=== PATIENT | male | born 1960 | race Caucasian/White ===

== ENCOUNTER → 2017-11-15 | Outpatient (CLI) | payer OTHER ==
[~2017-11-15] MED LIST: ALBU90OI; ALBU90OI6 INH; AMOCLA875 PO; Ativan1 MG PO; BUME2 PO; CARV6.25 PO; CEPH500 PO; CLIN300 PO; DIGO.25; DOXY100 PO; FERR325; FLUSAL5005; FURO20 PO; FURO40; GLYB2.5; GLYB5; HUMULIN R; HYDACE5 PO; HYDGUAL120 PO; HYDR1TAB94 PO; INSULANI; INSULIN 70/30 SC; KLOR; LISI20; METF500; MULVITA; MUPI2TC TOP; NIAC500; Norco 5-325 Ta1 EACH PO; OXYACE5T PO; OXYM.05NI; POTA10T PO; PRAV20 PO; PROCODE120 PO; Percocet 5-3251 EACH PO; RXHYDGUAS PO; SIMV20; SIMV40 PO; SPIR25; SULTRIDS PO; TRAZ100 PO; VERA180ER; VERA180ERB; WARF5
[2017-11-15 14:49] LABS: BASOPHILS ABSOLUTE AUTO 0.07 K/mm3 (0.00-0.23); BASOPHILS PERCENT AUTO 1 % (0-2); EOSINOPHILS ABSOLUTE AUTO 0.16 K/mm3 (0.00-0.68); EOSINOPHILS PERCENT AUTO 2 % (0-6); Hematocrit 38.4 % (37.0-53.0); Hemoglobin 12.9 g/dL (13.5-17.5); IMMATURE GRAN ABSOLUTE AUTO 0.07 K/mm3 (0.00-0.10); IMMATURE GRAN PERCENT AUTO 1 % (0-1); LYMPHOCYTES ABSOLUTE AUTO 1.61 K/mm3 (0.84-5.20); LYMPHOCYTES PERCENT AUTO 18 % (21-46); MONOCYTES ABSOLUTE AUTO 1.04 K/mm3 (0.16-1.47); MONOCYTES PERCENT AUTO 11 % (4-13); Mean Corpuscular HGB 30.1 pg (26.0-34.0); Mean Corpuscular HGB Conc 33.6 g/dL (31.5-36.5); Mean Corpuscular Volume 90 fL (80-100); Mean Platelet Volume 10.8 fL (9.1-12.4); NEUTROPHILS ABSOLUTE AUTO 6.22 K/mm3 (1.96-9.15); NEUTROPHILS PERCENT AUTO 68 % (41-73); Platelet Count 161 K/mm3 (150-400); RDW Coefficient Variation 13.9 % (11.7-14.2); RDW Standard Deviation 45.5 fL (35.1-46.3); Red Blood Cell Count 4.28 M/mm3 (4.30-5.90); White Blood Cell Count 9.17 K/mm3 (4.00-11.30)
[2017-11-15 15:02] LABS: Anion Gap 9 mmol/L (6-16); Blood Urea Nitrogen 26 mg/dL (8-24); Bun/Creatinine Ratio 27.4 (12.0-20.0); CO2, Blood 32 mmol/L (21-32); Calcium, Blood 9.2 mg/dL (8.5-10.1); Chloride, Blood 102 mmol/L (98-108); Creatinine, Blood 0.95 mg/dL (0.60-1.20); Glomerular Filtration Rate >60 (60-); Glucose, Blood 140 mg/dL (70-99); Potassium, Blood 4.1 mmol/L (3.5-5.5); Sodium, Blood 143 mmol/L (136-145)
[2017-11-15 15:06] LABS: Troponin I <0.017 ng/mL (0.000-0.040)
== END | disposition home or self-care (01) ==
LOC: LAB EV 14:43
PROVIDERS: Family Medicine
DX: R06.02 Shortness of breath (principal)
CPT/HCPCS: 80048; 83880; 84484; 85025

== ENCOUNTER → 2017-11-21 | Outpatient (CLI) | payer OTHER | END | disposition home or self-care (01) | LOC: OLS 13:58 | DX: R05 Cough (principal) | CPT/HCPCS: 87070; 87205 ==

== ENCOUNTER 2018-03-02 13:32 | Emergency (ER) | payer OTHER ==
[~2018-03-02] VITALS: Ht 188 cm; Wt 128.8 kg
== END 2018-03-02 16:00 | disposition left against medical advice (07) ==
LOC: ER 13:32
DX: Z53.21 Procedure and treatment not carried out due to patient leaving prior to being seen by health care provider (principal)
CPT/HCPCS: 36415; 84484; 93005; 93010; 99283

== ENCOUNTER → 2018-03-02 | Outpatient (CLI) | payer OTHER ==
[2018-03-02 12:11] LABS: BASOPHILS ABSOLUTE AUTO 0.03 K/mm3 (0.00-0.23); BASOPHILS PERCENT AUTO 0 % (0-2); EOSINOPHILS ABSOLUTE AUTO 0.09 K/mm3 (0.00-0.68); EOSINOPHILS PERCENT AUTO 1 % (0-6); Hematocrit 42.8 % (37.0-53.0); Hemoglobin 14.1 g/dL (13.5-17.5); IMMATURE GRAN ABSOLUTE AUTO 0.04 K/mm3 (0.00-0.10); IMMATURE GRAN PERCENT AUTO 0 % (0-1); LYMPHOCYTES ABSOLUTE AUTO 1.32 K/mm3 (0.84-5.20); LYMPHOCYTES PERCENT AUTO 14 % (21-46); MONOCYTES ABSOLUTE AUTO 1.22 K/mm3 (0.16-1.47); MONOCYTES PERCENT AUTO 13 % (4-13); Mean Corpuscular HGB Conc 32.9 g/dL (31.5-36.5); Mean Corpuscular Volume 88 fL (80-100); Mean Platelet Volume 10.9 fL (9.1-12.4); NEUTROPHILS ABSOLUTE AUTO 6.57 K/mm3 (1.96-9.15); NEUTROPHILS PERCENT AUTO 71 % (41-73); Platelet Count 179 K/mm3 (150-400); RDW Coefficient Variation 14.1 % (11.7-14.2); RDW Standard Deviation 45.1 fL (35.1-46.3); Red Blood Cell Count 4.87 M/mm3 (4.30-5.90); White Blood Cell Count 9.27 K/mm3 (4.00-11.30)
[2018-03-02 12:22] LABS: Anion Gap 9 mmol/L (6-16); Blood Urea Nitrogen 21 mg/dL (8-24); Bun/Creatinine Ratio 23.1 (12.0-20.0); CO2, Blood 31 mmol/L (21-32); Calcium, Blood 8.8 mg/dL (8.5-10.1); Chloride, Blood 98 mmol/L (98-108); Creatinine, Blood 0.91 mg/dL (0.60-1.20); Glomerular Filtration Rate >60 (60-); Glucose, Blood 125 mg/dL (70-99); Potassium, Blood 3.8 mmol/L (3.5-5.5); Sodium, Blood 138 mmol/L (136-145); Troponin I 0.022 ng/mL (0.000-0.040)
== END | disposition home or self-care (01) ==
LOC: LAB SHORT 12:03 → LAB EV 12:03
PROVIDERS: Physician Assistant Surgical
DX: R04.2 Hemoptysis (principal)
CPT/HCPCS: 80048; 83880; 84484; 85025; 85379

== ENCOUNTER → 2018-10-29 | Outpatient (CLI) | payer OTHER | LOC: LAB 11:00 → LAB SHORT 11:00 | DX: L02.229 Furuncle of trunk, unspecified (principal) | CPT/HCPCS: 87070; 87205 ==

== ENCOUNTER → 2018-12-25 | Outpatient (CLI) | payer OTHER | LOC: LAB SHORT 16:08 → LAB 16:08 | DX: L02.92 Furuncle, unspecified (principal) | CPT/HCPCS: 88302; 88311 ==

== ENCOUNTER → 2019-05-15 | Outpatient (CLI) | payer OTHER ==
[~2019-05-15] MED LIST changes: +ALBU3IS INH; +BUME1 PO; +CALCITRATE200 MG; +Carvedilol12.5 MG PO; +DOCU100 PO; +ENTRESTO 49 MG1 EACH PO; +FLUT1DIS5 INH; +Fruity C250 MG PO; +Glucophage1000 MG PO; +Humalog100 UNIT/1 SC; +INSULANPEN SC; +K-Dur20 MEQ PO; +LIRA0.6P SC; +MAGOXI400 PO; +MELATONIN5 M1 PO; +Multivitamin1 EAC1 PO; +Pravachol20 MG PO; +Promethazine12.5 M1 PO; +VOLTAREN100 GM TOP; +WARF7.5 PO
== END ==
LOC: LAB 17:44 → LAB SHORT 17:44
DX: L08.9 Local infection of the skin and subcutaneous tissue, unspecified (principal); D48.5 Neoplasm of uncertain behavior of skin
CPT/HCPCS: 87070; 87186; 87205

== ENCOUNTER 2019-07-10 00:20 | Day surgery (SDC) | payer OTHER | END 2019-07-10 22:37 | disposition home or self-care (01) | LOC: WOUND 00:20 | DX: T81.31XA Disruption of external operation (surgical) wound, not elsewhere classified, initial encounter (principal) | CPT/HCPCS: G0463 ==

== ENCOUNTER 2019-07-19 12:26 | Day surgery (SDC) | payer OTHER | END 2019-07-19 22:36 | disposition home or self-care (01) | LOC: WOUND 12:26 | DX: T81.89XA Other complications of procedures, not elsewhere classified, initial encounter (principal); S31.109A Unspecified open wound of abdominal wall, unspecified quadrant without penetration into peritoneal cavity, initial encounter; E11.9 Type 2 diabetes mellitus without complications; I10 Essential (primary) hypertension; E66.01 Morbid (severe) obesity due to excess calories; Z68.33 Body mass index [BMI] 33.0-33.9, adult | CPT/HCPCS: G0463 ==

== ENCOUNTER → 2019-07-20 | Outpatient (CLI) | payer OTHER | END | disposition home or self-care (01) | LOC: LAB SHORT 14:14 → LAB 14:14 | DX: T81.31XA Disruption of external operation (surgical) wound, not elsewhere classified, initial encounter (principal) | CPT/HCPCS: 87070; 87075; 87077; 87147; 87186; 87205 ==

== ENCOUNTER 2019-07-24 00:28 | Day surgery (SDC) | payer OTHER | END 2019-07-24 22:55 | disposition home or self-care (01) | LOC: WOUND 00:28 | DX: L02.211 Cutaneous abscess of abdominal wall (principal) | CPT/HCPCS: 88305 ==

== ENCOUNTER → 2019-11-15 | Outpatient (CLI) | payer OTHER ==
[2019-11-15 16:45] LABS: U Amphetamine Screen Not Detected; U Barbituate Screen Not Detected; U Benzodiazapine Screen Not Detected; U Buprenorphine Screen Not Detected; U Cannabinoids Screen Not Detected; U Cocaine Screen Not Detected; U Methadone Screen Not Detected; U Methamphetamine Screen Not Detected; U Opiates Screen Not Detected; U Oxycodone Screen Not Detected; U Phencyclidine Screen Not Detected; U Propoxyphene Screen Not Detected
== END ==
LOC: LAB 15:56 → LAB SHORT 15:56
PROVIDERS: Nurse Practitioner Family
DX: R10.2 Pelvic and perineal pain (principal); Z79.891 Long term (current) use of opiate analgesic
CPT/HCPCS: 87086

== ENCOUNTER → 2020-02-10 | Outpatient (CLI) | payer OTHER | END | disposition home or self-care (01) | LOC: LAB 15:24 → LAB SHORT 15:24 | DX: L03.90 Cellulitis, unspecified (principal) | CPT/HCPCS: 87070; 87077; 87186; 87205 ==

== ENCOUNTER → 2020-09-07 | Outpatient (CLI) | payer OTHER ==
[~2020-09-07] MED LIST changes: +ONDA4 MM
== END ==
LOC: LAB 17:43 → LAB SHORT 17:43
DX: M25.562 Pain in left knee (principal)
CPT/HCPCS: 87070; 87077; 87147; 87186; 87205

== ENCOUNTER → 2021-04-21 | Outpatient (CLI) | payer OTHER ==
[2021-04-21 16:54] LABS: BASOPHILS ABSOLUTE AUTO 0.07 K/mm3 (0.00-0.23); BASOPHILS PERCENT AUTO 1 % (0-2); EOSINOPHILS ABSOLUTE AUTO 0.12 K/mm3 (0.00-0.68); EOSINOPHILS PERCENT AUTO 1 % (0-6); Hematocrit 42.6 % (37.0-53.0); Hemoglobin 14.3 g/dL (13.5-17.5); IMMATURE GRAN ABSOLUTE AUTO 0.06 K/mm3 (0.00-0.10); IMMATURE GRAN PERCENT AUTO 1 % (0-1); LYMPHOCYTES ABSOLUTE AUTO 2.09 K/mm3 (0.84-5.20); LYMPHOCYTES PERCENT AUTO 20 % (21-46); MONOCYTES ABSOLUTE AUTO 0.77 K/mm3 (0.16-1.47); MONOCYTES PERCENT AUTO 8 % (4-13); Mean Corpuscular HGB 30.5 pg (26.0-34.0); Mean Corpuscular HGB Conc 33.6 g/dL (31.5-36.5); Mean Corpuscular Volume 91 fL (80-100); Mean Platelet Volume 10.5 fL (9.1-12.4); NEUTROPHILS ABSOLUTE AUTO 7.13 K/mm3 (1.96-9.15); NEUTROPHILS PERCENT AUTO 70 % (41-73); Platelet Count 213 K/mm3 (150-400); RDW Coefficient Variation 13.2 % (11.7-14.2); RDW Standard Deviation 43.3 fL (35.1-46.3); Red Blood Cell Count 4.69 M/mm3 (4.30-5.90); White Blood Cell Count 10.24 K/mm3 (4.00-11.30)
[2021-04-21 17:13] LABS: Alanine Aminotransfer (ALT/SGP 23 U/L (12-78); Albumin, Blood 3.6 g/dL (3.4-5.0); Albumin/Globulin Ratio 0.9 (0.8-1.8); Alk Phos 102 U/L (40-126); Anion Gap 9 mmol/L (6-16); Aspartate Aminotrans (AST/SGOT 12 U/L (12-37); Bilirubin, Total 0.3 mg/dL (0.1-1.0); Blood Urea Nitrogen 24 mg/dL (8-24); Bun/Creatinine Ratio 23.3 (12.0-20.0); CO2, Blood 31 mmol/L (21-32); Calcium, Blood 9.3 mg/dL (8.5-10.1); Chloride, Blood 102 mmol/L (98-108); Creatinine, Blood 1.03 mg/dL (0.60-1.20); Glomerular Filtration Rate >60 (60-); Glucose, Blood 131 mg/dL (70-99); Potassium, Blood 3.9 mmol/L (3.5-5.5); Sodium, Blood 142 mmol/L (136-145); Total Protein, Blood 7.6 g/dL (6.4-8.2); Troponin I <0.017 ng/mL (0.000-0.040)
== END | disposition home or self-care (01) ==
LOC: LAB SHORT 16:50 → LAB 16:50
PROVIDERS: Physician Assistant
DX: R07.9 Chest pain, unspecified (principal)
CPT/HCPCS: 80053; 83690; 84484; 85025

== ENCOUNTER → 2021-06-30 | Outpatient (CLI) | payer OTHER ==
[2021-06-30 16:44] LABS: Source, Urine Clean Catch
[2021-06-30 18:53] LABS: Appearance, Urine Clear (Clear); Bilirubin, Urine Neg (Neg); Blood, Urine 1+ (Neg); Color, Urine Yellow (P-Yellow); Glucose Qualitative, Urine Neg (Neg); Ketones, Urine Neg (Neg); Leukocyte Esterase, Urine 1+ (Neg); Nitrite, Urine Neg (Neg); Protein, Urine 3+ (Neg); Specific Gravity, Urine 1.015 (1.003-1.022); Urobilinogen, Urine NORM (Normal)
[2021-06-30 19:14] LABS: Red Blood Cells, Urine 0-2 /hpf (0-2); Squamous Epithelial Cells Few /hpf (Few); White Blood Cells, Urine 0-2 /hpf (0-5)
[2021-06-30 19:15] LABS: Bacteria Few /hpf; Hyaline Casts 0-2 /lpf (0-2)
== END ==
LOC: LAB SHORT 16:41 → LAB 16:41
PROVIDERS: Nurse Practitioner Family
DX: R10.9 Unspecified abdominal pain (principal)
CPT/HCPCS: 81001; 87086

== ENCOUNTER 2022-03-17 23:43 | Emergency (ER) | payer OTHER ==
[~2022-03-17] VITALS: Ht 182.9 cm; Wt 117.9 kg
== END 2022-03-18 00:01 | disposition home or self-care (01) ==
LOC: ER 23:43
DX: F10.129 Alcohol abuse with intoxication, unspecified (principal); S00.03XA Contusion of scalp, initial encounter; I10 Essential (primary) hypertension; E11.9 Type 2 diabetes mellitus without complications; I48.91 Unspecified atrial fibrillation; Z87.891 Personal history of nicotine dependence; Z79.899 Other long term (current) drug therapy; Z79.01 Long term (current) use of anticoagulants; Z91.018 Allergy to other foods; Z79.4 Long term (current) use of insulin; Z88.8 Allergy status to other drugs, medicaments and biological substances; W19.XXXA Unspecified fall, initial encounter; Y92.9 Unspecified place or not applicable
CPT/HCPCS: 99283

== ENCOUNTER → 2022-05-23 | Outpatient (CLI) | payer OTHER | END | disposition home or self-care (01) | LOC: LAB SHORT 15:30 → LAB 15:30 | DX: B35.1 Tinea unguium (principal); M79.673 Pain in unspecified foot | CPT/HCPCS: 87070; 87075; 87205 ==

== ENCOUNTER 2022-08-12 03:00 | Day surgery (SDC) | payer OTHER | END 2022-08-13 00:32 | disposition home or self-care (01) | LOC: WOUND 03:00 | DX: L89.892 Pressure ulcer of other site, stage 2 (principal); E11.621 Type 2 diabetes mellitus with foot ulcer; E11.51 Type 2 diabetes mellitus with diabetic peripheral angiopathy without gangrene; I10 Essential (primary) hypertension; Z87.891 Personal history of nicotine dependence | CPT/HCPCS: G0463 ==

== ENCOUNTER 2022-08-29 02:43 | Day surgery (SDC) | payer OTHER | END 2022-08-29 23:23 | disposition home or self-care (01) | LOC: WOUND 02:43 | DX: E11.621 Type 2 diabetes mellitus with foot ulcer (principal); E11.51 Type 2 diabetes mellitus with diabetic peripheral angiopathy without gangrene; L97.512 Non-pressure chronic ulcer of other part of right foot with fat layer exposed; L89.892 Pressure ulcer of other site, stage 2; I10 Essential (primary) hypertension; E66.01 Morbid (severe) obesity due to excess calories; Z68.30 Body mass index [BMI] 30.0-30.9, adult | CPT/HCPCS: A9270; G0463 ==

== ENCOUNTER 2022-10-10 01:29 | Day surgery (SDC) | payer OTHER ==
[~2022-10-10 01:29] MED LIST changes: +XARELTO20 MG
== END 2022-10-10 23:34 | disposition home or self-care (01) ==
DX: E11.621 Type 2 diabetes mellitus with foot ulcer (principal); L89.892 Pressure ulcer of other site, stage 2; E11.51 Type 2 diabetes mellitus with diabetic peripheral angiopathy without gangrene

== ENCOUNTER 2022-10-25 02:58 | Day surgery (SDC) | payer OTHER | END 2022-10-25 23:03 | disposition home or self-care (01) | LOC: WOUND 02:58 | DX: E11.621 Type 2 diabetes mellitus with foot ulcer (principal); L97.512 Non-pressure chronic ulcer of other part of right foot with fat layer exposed; L97.522 Non-pressure chronic ulcer of other part of left foot with fat layer exposed; E11.51 Type 2 diabetes mellitus with diabetic peripheral angiopathy without gangrene; S91.105D Unspecified open wound of left lesser toe(s) without damage to nail, subsequent encounter; S91.104D Unspecified open wound of right lesser toe(s) without damage to nail, subsequent encounter | CPT/HCPCS: A9270; G0463 ==

== ENCOUNTER 2022-11-08 07:29 | Day surgery (SDC) | payer OTHER ==
[~2022-11-08] VITALS: Ht 182.9 cm; Wt 104.0 kg
[2022-11-08] MEDS ORDERED: FURO20 PO (08:24)
[2022-11-08] MEDS ORDERED: COLCHICINE0.6 MG PO (08:24)
[2022-11-08] MEDS ORDERED: TRAM50 PO (08:25)
[2022-11-08] MEDS ORDERED: SPIR25 PO (08:25)
[2022-11-08] MEDS ORDERED: Ultram50 MG PO (08:26)
--- NOTE | 2022-11-08 11:00 | NUR ---
PT RETURNED FROM RECOVERY ROOM IN BED. RIGHT FEMORAL GROIN SITE SOFT NON-TENDER WITH NO HEMATOMA, NO PULSATILE BLEEDING AND INTACT DRESSING. CALL LIGHT IN REACH. PT DENIES CHEST PAIN. PT'S IN ROOM.
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
== END 2022-11-08 12:15 | disposition home or self-care (01) ==
LOC: MHTC 07:29
DX: E11.51 Type 2 diabetes mellitus with diabetic peripheral angiopathy without gangrene (principal); I70.213 Atherosclerosis of native arteries of extremities with intermittent claudication, bilateral legs; E11.22 Type 2 diabetes mellitus with diabetic chronic kidney disease; I12.9 Hypertensive chronic kidney disease with stage 1 through stage 4 chronic kidney disease, or unspecified chronic kidney disease; N18.9 Chronic kidney disease, unspecified; E78.5 Hyperlipidemia, unspecified; Z87.891 Personal history of nicotine dependence; Z79.4 Long term (current) use of insulin
CPT/HCPCS: 76937; 99152; 99153; C1725; C1760; C1769; C1885; C1887; C1894; J0690; J1644; J2250; J3010; J7030; J7040; Q9967

== ENCOUNTER → 2022-11-20 | Outpatient (CLI) | payer OTHER ==
[~2022-11-20] MED LIST changes: +ALLO100 PO; +BASAGLAR K100 UNIT/3 SC; +COLCHICINE0.6 MG PO; +DIGOX125 MC1 PO; +ENTRESTO 24 MG1 EACH PO; +FARXIGA10 MG PO; +HUMALOG100 UNIT/1; +LINE600 PO; +OMEP20ER PO; +SPIR25 PO; +TRAM50 PO; +Ultram50 MG PO
== END | disposition home or self-care (01) ==
LOC: LAB SHORT 16:57 → LAB 16:57
DX: L08.9 Local infection of the skin and subcutaneous tissue, unspecified (principal)
CPT/HCPCS: 87070; 87075; 87077; 87106; 87186; 87205

== ENCOUNTER 2022-11-22 20:48 | Inpatient (IN) | payer OTHER ==
[~2022-11-22] VITALS: Ht 188 cm; Wt 112.6 kg
[~2022-11-22 20:48] MED LIST changes: -ALLO100 PO; -BASAGLAR K100 UNIT/3 SC; -DIGOX125 MC1 PO; -ENTRESTO 24 MG1 EACH PO; -FARXIGA10 MG PO; -HUMALOG100 UNIT/1; -LINE600 PO; -OMEP20ER PO
[2022-11-22 21:17] LABS: BASOPHILS ABSOLUTE AUTO 0.09 K/mm3 (0.00-0.23); BASOPHILS PERCENT AUTO 1 % (0-2); EOSINOPHILS ABSOLUTE AUTO 0.29 K/mm3 (0.00-0.68); EOSINOPHILS PERCENT AUTO 2 % (0-6); Hematocrit 34.8 % (37.0-53.0); Hemoglobin 10.9 g/dL (13.5-17.5); IMMATURE GRAN ABSOLUTE AUTO 0.04 K/mm3 (0.00-0.10); IMMATURE GRAN PERCENT AUTO 0 % (0-1); LYMPHOCYTES ABSOLUTE AUTO 1.62 K/mm3 (0.84-5.20); LYMPHOCYTES PERCENT AUTO 13 % (21-46); MONOCYTES ABSOLUTE AUTO 1.45 K/mm3 (0.16-1.47); MONOCYTES PERCENT AUTO 12 % (4-13); Mean Corpuscular HGB 26.9 pg (26.0-34.0); Mean Corpuscular HGB Conc 31.3 g/dL (31.5-36.5); Mean Corpuscular Volume 86 fL (80-100); Mean Platelet Volume 8.8 fL (9.1-12.4); NEUTROPHILS ABSOLUTE AUTO 8.64 K/mm3 (1.96-9.15); NEUTROPHILS PERCENT AUTO 71 % (41-73); Platelet Count 265 K/mm3 (150-400); RDW Coefficient Variation 15.4 % (11.7-14.2); RDW Standard Deviation 48.1 fL (35.1-46.3); Red Blood Cell Count 4.05 M/mm3 (4.30-5.90); White Blood Cell Count 12.13 K/mm3 (4.00-11.30)
[2022-11-22 21:41] LABS: Albumin, Blood 3.4 g/dL (3.4-5.0); Albumin/Globulin Ratio 0.9 (0.8-1.8); Bilirubin, Total 0.4 mg/dL (0.1-1.0); Calcium, Blood 9.1 mg/dL (8.5-10.1); Creatinine, Blood 1.5 mg/dL (0.60-1.20); Globulin, Blood 3.8 g/dL (2.2-4.0); Total Protein, Blood 7.2 g/dL (6.4-8.2)
[2022-11-23 04:26] LABS: BASOPHILS ABSOLUTE AUTO 0.09 K/mm3 (0.00-0.23); BASOPHILS PERCENT AUTO 1 % (0-2); EOSINOPHILS ABSOLUTE AUTO 0.31 K/mm3 (0.00-0.68); EOSINOPHILS PERCENT AUTO 3 % (0-6); Hematocrit 32.9 % (37.0-53.0); Hemoglobin 10.3 g/dL (13.5-17.5); IMMATURE GRAN ABSOLUTE AUTO 0.03 K/mm3 (0.00-0.10); IMMATURE GRAN PERCENT AUTO 0 % (0-1); LYMPHOCYTES ABSOLUTE AUTO 1.92 K/mm3 (0.84-5.20); LYMPHOCYTES PERCENT AUTO 19 % (21-46); MONOCYTES PERCENT AUTO 11 % (4-13); Mean Corpuscular HGB 27.1 pg (26.0-34.0); Mean Corpuscular HGB Conc 31.3 g/dL (31.5-36.5); Mean Corpuscular Volume 87 fL (80-100); Mean Platelet Volume 9.1 fL (9.1-12.4); NEUTROPHILS ABSOLUTE AUTO 6.73 K/mm3 (1.96-9.15); NEUTROPHILS PERCENT AUTO 66 % (41-73); Platelet Count 244 K/mm3 (150-400); RDW Coefficient Variation 15.6 % (11.7-14.2); RDW Standard Deviation 49.3 fL (35.1-46.3); White Blood Cell Count 10.18 K/mm3 (4.00-11.30)
[2022-11-23 04:55] LABS: Bun/Creatinine Ratio 22.7 (12.0-20.0); Calcium, Blood 8.5 mg/dL (8.5-10.1); Creatinine, Blood 1.72 mg/dL (0.60-1.20)
[2022-11-23] MEDS ORDERED: ENTRESTO 24 MG1 EACH PO (04:55)
[2022-11-23] MEDS ORDERED: MELATONIN5 M1 PO (04:55)
[2022-11-23] MEDS ORDERED: DIGOX125 MC1 PO (04:56)
[2022-11-23] MEDS ORDERED: SPIR25 PO (04:56)
[2022-11-23] MEDS ORDERED: OMEP20ER PO (04:56)
[2022-11-23] MEDS ORDERED: ALLO100 PO (04:57)
[2022-11-23] MEDS ORDERED: FARXIGA10 MG PO (04:57)
[2022-11-23] MEDS ORDERED: BASAGLAR K100 UNIT/3 SC (04:58)
[2022-11-23] MEDS ORDERED: HUMALOG100 UNIT/1 (04:58)
[2022-11-23] MEDS ORDERED: LINE600 PO (04:59)
--- NOTE | 2022-11-23 18:34 | NUR ---
PATIENT A/OX4, UP INDEPENDENTLY IN ROOM. VSS, ON RA. A-FIB ON TELE, RATE IN THE 70-80'S. PICS TAKEN OF FOOT WOUNDS AND PLACED ON CHART. DRESSINGS CHANGED TODAY AND REMAIN C/D/I. DR. ADRIAN, BOX SEALING MACHINE OPERATOR IN TO SEE PATIENT TODAY, NO PLANS FOR SURGICAL INTERVENTION. TOLERATING ADA DIET. ACHS BLOOD SUGARS. NORCO GIVEN X1 TO TREAT PAIN. ANXIOUS AT TIMES, CALMS WITH CONVERSATION. CALLS APPROPRIATELY FOR ASSISTANCE.
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
--- NOTE | 2022-11-24 10:09 | NUR ---
DR LARIOS ROUNDED, PATIENT TO BE DISCHARGED WITH ANTIBIOTIC MEDICATION RX
[2022-11-24] MEDS ORDERED: AMOCLA875 PO (10:13)
--- NOTE | 2022-11-24 13:13 | NUR ---
1036 PATIENT DISCHARGED VIA W/C, STATED UNDERSTANDING OF DISCHARGE INFORMATION, MEDICATIONS, FOLLOW UP NEEDS
== END 2022-11-24 10:29 | disposition home or self-care (01) | DRG 638 ==
LOC: ER 20:48 → MEDS 11-23 02:32 → ERHOLD 11-23 02:32 → MEDS 11-23 08:54
PROVIDERS: Family Medicine; Physician Assistant; ADMIT Family Medicine
DX: E11.628 Type 2 diabetes mellitus with other skin complications (principal); L03.116 Cellulitis of left lower limb; E11.621 Type 2 diabetes mellitus with foot ulcer; L97.529 Non-pressure chronic ulcer of other part of left foot with unspecified severity; N17.9 Acute kidney failure, unspecified; E86.0 Dehydration; I48.91 Unspecified atrial fibrillation; I10 Essential (primary) hypertension; E11.51 Type 2 diabetes mellitus with diabetic peripheral angiopathy without gangrene; E78.00 Pure hypercholesterolemia, unspecified; Z98.890 Other specified postprocedural states; Z90.49 Acquired absence of other specified parts of digestive tract; Z87.891 Personal history of nicotine dependence; Z88.8 Allergy status to other drugs, medicaments and biological substances; Z91.018 Allergy to other foods; Z88.1 Allergy status to other antibiotic agents; Z79.84 Long term (current) use of oral hypoglycemic drugs; Z79.51 Long term (current) use of inhaled steroids; Z79.01 Long term (current) use of anticoagulants; Z79.4 Long term (current) use of insulin; Z79.891 Long term (current) use of opiate analgesic; Z79.899 Other long term (current) drug therapy; Z86.14 Personal history of Methicillin resistant Staphylococcus aureus infection
CPT/HCPCS: 36415; 73620; 80048; 80053; 82947; 84484; 85025; 87040; 93926; 96365; 96366; 96375; 99285-25; A9270; J0696; J1815; J3370; J7030; J7050; J7120

== ENCOUNTER → 2022-12-06 | Outpatient (CLI) | payer OTHER ==
[~2022-12-06] MED LIST changes: +ALLO100 PO; +BASAGLAR K100 UNIT/3 SC; +DIGOX125 MC1 PO; +ENTRESTO 24 MG1 EACH PO; +FARXIGA10 MG PO; +HUMALOG100 UNIT/1; +LINE600 PO; +OMEP20ER PO
== END ==
LOC: LAB SHORT 16:46 → LAB 16:46
DX: L08.9 Local infection of the skin and subcutaneous tissue, unspecified (principal)
CPT/HCPCS: 87070; 87075; 87077; 87106; 87186; 87205

== ENCOUNTER 2022-12-19 00:22 | Day surgery (SDC) | payer OTHER | END 2022-12-19 23:13 | disposition home or self-care (01) | LOC: WOUND 00:22 | DX: E11.621 Type 2 diabetes mellitus with foot ulcer (principal); E11.51 Type 2 diabetes mellitus with diabetic peripheral angiopathy without gangrene; S91.105A Unspecified open wound of left lesser toe(s) without damage to nail, initial encounter; S91.104A Unspecified open wound of right lesser toe(s) without damage to nail, initial encounter; I87.2 Venous insufficiency (chronic) (peripheral); I70.208 Unspecified atherosclerosis of native arteries of extremities, other extremity | CPT/HCPCS: A9270; G0463 ==

== ENCOUNTER 2022-12-28 09:14 | Day surgery (SDC) | payer OTHER ==
[~2022-12-28] VITALS: Ht 188 cm; Wt 105.0 kg
[~2022-12-28 09:14] MED LIST changes: -Glucophage1000 MG PO; -LIRA0.6P SC; +METF500 PO; +VICTOZA 2-0.6 MG/0.1 SC
[2022-12-28] MEDS ORDERED: LEVO750 PO (09:36)
[2022-12-28] MEDS ORDERED: Norco 10-325 T1 EACH PO (09:38)
[2022-12-28] MEDS ORDERED: JARDIANCE10 MG PO (09:39)
[2022-12-28] MEDS ORDERED: ENTRESTO 49 MG1 EACH PO (09:40)
[2022-12-28 09:55] LABS: BASOPHILS ABSOLUTE AUTO 0.06 K/mm3 (0.00-0.23); BASOPHILS PERCENT AUTO 1 % (0-2); EOSINOPHILS ABSOLUTE AUTO 0.32 K/mm3 (0.00-0.68); EOSINOPHILS PERCENT AUTO 3 % (0-6); Hematocrit 29.7 % (37.0-53.0); Hemoglobin 9.3 g/dL (13.5-17.5); IMMATURE GRAN ABSOLUTE AUTO 0.08 K/mm3 (0.00-0.10); IMMATURE GRAN PERCENT AUTO 1 % (0-1); LYMPHOCYTES ABSOLUTE AUTO 1.33 K/mm3 (0.84-5.20); LYMPHOCYTES PERCENT AUTO 11 % (21-46); MONOCYTES ABSOLUTE AUTO 1.52 K/mm3 (0.16-1.47); MONOCYTES PERCENT AUTO 13 % (4-13); Mean Corpuscular HGB Conc 31.3 g/dL (31.5-36.5); Mean Corpuscular Volume 80 fL (80-100); NEUTROPHILS ABSOLUTE AUTO 8.73 K/mm3 (1.96-9.15); NEUTROPHILS PERCENT AUTO 73 % (41-73); Platelet Count 210 K/mm3 (150-400); RDW Coefficient Variation 17.2 % (11.7-14.2); RDW Standard Deviation 50.2 fL (35.1-46.3); Red Blood Cell Count 3.72 M/mm3 (4.30-5.90); White Blood Cell Count 12.04 K/mm3 (4.00-11.30)
[2022-12-28 10:13] LABS: Bun/Creatinine Ratio 30.4 (12.0-20.0); Calcium, Blood 8.7 mg/dL (8.5-10.1); Creatinine, Blood 1.38 mg/dL (0.60-1.20); Potassium, Blood 4.2 mmol/L (3.5-5.5)
[2022-12-28 10:35] LABS: Digoxin (Lanoxin) 1.36 ug/mL (0.80-2.00)
--- NOTE | 2022-12-28 11:56 | NUR ---
[facility] post procedure. awakens easily, responds appropriately. right groin site soft and nontender. no hematoma, no bleeding.
--- NOTE | 2022-12-28 13:45 | NUR ---
PT AND S/O VERBALIZES UNDERSTANDING WRITTEN AND VERBAL INSTRUCTIONS. VSS. NADN. PT DENIES QUESTIONS OR CONCERNS. PT R FEMORAL SITE REMAINS CLEAR. NO BLEEDING OR HEMATOMA NOTED.
--- NOTE | 2022-12-28 14:06 | NUR ---
PT DRESSES SELF WITH MINMAL ASSISTANCE. VSS. R FEMORAL SITE CLEAR. PT IV DC'D. CATH INTACT. PRESSURE DSG APPLIED. NO BLEEDING NOTED. PT DC'D TO HOME VIA WC BY S/O
== END 2022-12-28 15:32 | disposition home or self-care (01) ==
LOC: MHTC 09:14
PROVIDERS: Radiology Diagnostic Radiology
DX: I70.223 Atherosclerosis of native arteries of extremities with rest pain, bilateral legs (principal); L97.529 Non-pressure chronic ulcer of other part of left foot with unspecified severity
CPT/HCPCS: 76937; 80048; 80162; 85025; 99152; 99153; C1725; C1760; C1769; C1887; C1894; J1644; J2250; J3010; J7030; J7050; Q9967

== ENCOUNTER 2023-01-09 01:02 | Day surgery (SDC) | payer OTHER ==
[~2023-01-09 01:02] MED LIST changes: +JARDIANCE10 MG PO; +LEVO750 PO; +Norco 10-325 T1 EACH PO
== END 2023-01-09 23:38 | disposition home or self-care (01) ==
LOC: WOUND 01:02
DX: E11.621 Type 2 diabetes mellitus with foot ulcer (principal); L97.522 Non-pressure chronic ulcer of other part of left foot with fat layer exposed; L97.512 Non-pressure chronic ulcer of other part of right foot with fat layer exposed; E11.51 Type 2 diabetes mellitus with diabetic peripheral angiopathy without gangrene; S91.105D Unspecified open wound of left lesser toe(s) without damage to nail, subsequent encounter; S91.104D Unspecified open wound of right lesser toe(s) without damage to nail, subsequent encounter; I70.209 Unspecified atherosclerosis of native arteries of extremities, unspecified extremity; E11.21 Type 2 diabetes mellitus with diabetic nephropathy; I87.2 Venous insufficiency (chronic) (peripheral); I10 Essential (primary) hypertension; E66.01 Morbid (severe) obesity due to excess calories; Z79.01 Long term (current) use of anticoagulants
CPT/HCPCS: A9270

== ENCOUNTER 2023-02-03 02:26 | Day surgery (SDC) | payer OTHER ==
[~2023-02-03 02:26] MED LIST changes: +Cipro500 MG PO; +LIDO5TO TOP; +LORAZEPAM0.5 MG PO; +MIRALAX17 GM PO; +MS Contin15 MG PO; +ONDA4ODT MM; +QUETIAPINE FUMA5012 PO; +ROSUVASTATIN CA40 MG PO; +SOAANZ20 M3 PO; +ZOLP5 PO
== END 2023-02-03 22:56 | disposition home or self-care (01) ==
LOC: WOUND 02:26
DX: E11.621 Type 2 diabetes mellitus with foot ulcer (principal); L97.522 Non-pressure chronic ulcer of other part of left foot with fat layer exposed; L97.422 Non-pressure chronic ulcer of left heel and midfoot with fat layer exposed; E11.51 Type 2 diabetes mellitus with diabetic peripheral angiopathy without gangrene; E11.21 Type 2 diabetes mellitus with diabetic nephropathy; I87.2 Venous insufficiency (chronic) (peripheral); I70.209 Unspecified atherosclerosis of native arteries of extremities, unspecified extremity
CPT/HCPCS: A9270; G0463

== ENCOUNTER 2023-02-20 12:37 | Inpatient (IN) | payer OTHER ==
[2023-02-20] VITALS (7 sets, daily range): BP systolic 86–114; BP diastolic 37–65
[~2023-02-20] VITALS: Ht 188 cm; Wt 92.0 kg
[~2023-02-20 12:37] MED LIST changes: +Crestor40 MG PO; +MORP15ER PO; -Norco 10-325 T1 EACH PO; -Pravachol20 MG PO
[2023-02-20 14:12] LABS: BASOPHILS ABSOLUTE AUTO 0.06 K/mm3 (0.00-0.23); BASOPHILS PERCENT AUTO 1 % (0-2); EOSINOPHILS ABSOLUTE AUTO 0.14 K/mm3 (0.00-0.68); EOSINOPHILS PERCENT AUTO 1 % (0-6); Hemoglobin 7.1 g/dL (13.5-17.5); IMMATURE GRAN ABSOLUTE AUTO 0.08 K/mm3 (0.00-0.10); IMMATURE GRAN PERCENT AUTO 1 % (0-1); LYMPHOCYTES ABSOLUTE AUTO 1.23 K/mm3 (0.84-5.20); LYMPHOCYTES PERCENT AUTO 12 % (21-46); MONOCYTES ABSOLUTE AUTO 0.84 K/mm3 (0.16-1.47); MONOCYTES PERCENT AUTO 8 % (4-13); Mean Corpuscular HGB 23.3 pg (26.0-34.0); Mean Corpuscular HGB Conc 30.9 g/dL (31.5-36.5); Mean Corpuscular Volume 75 fL (80-100); Mean Platelet Volume 9.9 fL (9.1-12.4); NEUTROPHILS ABSOLUTE AUTO 7.85 K/mm3 (1.96-9.15); NEUTROPHILS PERCENT AUTO 77 % (41-73); Platelet Count 229 K/mm3 (150-400); RDW Coefficient Variation 19.4 % (11.7-14.2); RDW Standard Deviation 53.1 fL (35.1-46.3); Red Blood Cell Count 3.05 M/mm3 (4.30-5.90)
[2023-02-20 14:34] LABS: Albumin, Blood 2.8 g/dL (3.4-5.0); Albumin/Globulin Ratio 0.7 (0.8-1.8); Bilirubin, Total 0.5 mg/dL (0.1-1.0); Bun/Creatinine Ratio 42.3 (12.0-20.0); Calcium, Blood 8.5 mg/dL (8.5-10.1); Creatinine, Blood 1.23 mg/dL (0.60-1.20); Globulin, Blood 4.2 g/dL (2.2-4.0); Potassium, Blood 4.5 mmol/L (3.5-5.5)
--- NOTE | 2023-02-20 19:00 | NUR ---
ICU ADMISSION: PT ARRIVES ADMIT FROM THE ED. C/O SOB & CP x3DAYS. PER PREVIOUS RN, PT HAD STENT PLACED SEVERAL DAYS AGO. HE WAS DC'd ON XARELTO BUT CONTINUED TO TAKE HIS PLAVIX & ALSO TOOK NSAIDs MULTIPLE TIMES A DAY. TODAY HE WAS FOUND TO HAVE +GUIAC & LOW H&H. ADMIT FOR GI BLEED. UPON ARRIVAL PT IS IRRITABLE, TERSE RESPONSES. PT EXPRESSES HIS FRUSTRATION IN BEING ADMITTED; DESCRIBES HOSPITAL "THE HELL HOLE". BROUGHT TO BEDSIDE FOR CONSOLATION; PT STS "I'M GOING TO RAISE HELL, YOU DON'T MESS W/ MY FOOD" IN REFERENCE TO NPO STATUS. PT REMINDED OF APPROPRIATE BEHAVIORS WHILE IN THE HOSPITAL & EDUCATED ON THE IMPORTANCE OF PARTICIPATING IN CARE, APPEARS SOMEWHAT RECEPTIVE BUT CONTINUES TO REFUSE ASSESSMENTS. PT LEFT ALONE W/ FAMILY @ THIS TIME FOR SELF-SOOTHING & REFLECTION.
[2023-02-20 21:17] LABS: Hematocrit 26.4 % (37.0-53.0)
[2023-02-21] VITALS (25 sets, daily range): BP systolic 85–120; BP diastolic 33–102
[2023-02-21 02:40] LABS: Hematocrit 24.5 % (37.0-53.0); Hemoglobin 7.5 g/dL (13.5-17.5)
[2023-02-21 03:43] LABS: Alanine Aminotransfer (ALT/SGP 15 U/L (12-78); Albumin, Blood 2.5 g/dL (3.4-5.0); Albumin/Globulin Ratio 0.7 (0.8-1.8); Alk Phos 97 U/L (50-136); Anion Gap Unable to Calculate mmol/L (6-16); Aspartate Aminotrans (AST/SGOT 5 U/L (12-37); Bilirubin, Total 0.6 mg/dL (0.1-1.0); Blood Urea Nitrogen 43 mg/dL (8-24); Bun/Creatinine Ratio 38.1 (12.0-20.0); CO2, Blood 31 mmol/L (21-32); Calcium, Blood 8.4 mg/dL (8.5-10.1); Chloride, Blood 105 mmol/L (98-108); Creatinine, Blood 1.13 mg/dL (0.60-1.20); Globulin, Blood 3.8 g/dL (2.2-4.0); Glomerular Filtration Rate 74 (60-); Glucose, Blood 139 mg/dL (70-99); Potassium, Blood 4.3 mmol/L (3.5-5.5); Sodium, Blood 135 mmol/L (136-145); Total Protein, Blood 6.3 g/dL (6.4-8.2)
--- NOTE | 2023-02-21 06:27 | NUR ---
PATIENT AOX4. ANXIOUS WITH SOME RELIEF FROM PRN ATARAX. AFIB AND HYPOTENSIVE (MAPS IN THE 50'S) OVERNIGHT. 250 ML BOLUS GIVEN X2 WITH ONLY MILD IMPROVEMENT IN BP. HG 7.5, PROVIDER ORDER A UNIT OF PRBC'S, INFUSING NOW. PATIENT TOLERATING CLEAR LIQUID DIET. NO BM OVERNIGHT OR N/V. AT BEDSIDE WITH PATIENT.
[2023-02-21 08:30] LABS: International Normalized Ratio 1.12; Prothrombin Time Results 11.7 Sec (9.7-11.5)
--- NOTE | 2023-02-21 09:00 | NUR ---
UPDATE: HOSPITALIST ROUNDING. TASHA @ BEDSIDE FOR AM ROUNDS. CLARIFIED W/ TASHA THAT PLAVIX IS TO BE GIVEN SCHEDULED D/T RECENT STENT PLACEMENT. NURSE NOTIFY ORDER PLACED.
--- NOTE | 2023-02-21 12:00 | NUR ---
PT SITTING ON THE SIDE OF THE BED, FEET RESTING ON THE GROUND. PT SPEAKING W/ SPOUSE RE: STAY IN THE HOSPITAL & HIS FRUSTRATIONS. APPEARS TO BECOMING AGITATED. I APPROACHED PT & ENCOURAGED HIM TO SPEAK OPENLY W/ RN & STAFF ABOUT ANY UNMET NEEDS OR CONCERNS W/ HIS CARE. PT STS, "I WASN'T TALKING TO YOU, JUST BECAUSE YOU'RE IN HERE, DOESN'T MEAN I'M TALKING TO YOU". ALSO SPOKE W/ SPOUSE WHO STS PT IS "JUST ANXIOUS, THIS IS HIS PTSD". STS THIS IS IS TYPICAL BEHAVIOR WHEN IN THE HOSPITAL. WILL ADDRESS W/ PALLIATVE CARE
[2023-02-21 13:13] LABS: Hematocrit 28.7 % (37.0-53.0); Hemoglobin 8.8 g/dL (13.5-17.5)
--- NOTE | 2023-02-21 14:00 | NUR ---
UPDATE: MED STUDENT ROUNDING, PT APPEARS TO BE MUCH MORE CALM & RECEPTIVE TO CONVERSING. MOOD MUCH IMPROVED AFTER ATARAX.
--- NOTE | 2023-02-21 15:25 | NUR ---
DISCUSSED PT PROGRESSION W/ HOSPITALIST. PT NOW PCU STATUS.
[2023-02-21 16:50] LABS: U Amphetamine Screen Not Detected; U Barbituate Screen Not Detected; U Benzodiazapine Screen DETECTED; U Buprenorphine Screen Not Detected; U Cannabinoids Screen Not Detected; U Cocaine Screen Not Detected; U Methadone Screen Not Detected; U Methamphetamine Screen Not Detected; U Opiates Screen DETECTED; U Oxycodone Screen Not Detected; U Phencyclidine Screen Not Detected; U Propoxyphene Screen Not Detected
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
--- NOTE | 2023-02-21 18:00 | NUR ---
UPDATE: SEE PALLIATIVE CARE NOTATION. BRIEFLY SPOKE W/ DR CORDOVA, UPDATED ON CONVERSATION W/ PALLIATIVE. IT IS APPARENT THAT PT'S ANXIETY IS NOT CONTROLLED IN THE HOME SETTING & NOW THAT HE IS IN THE HOSPITAL, HIS PTSD REACTIONS ARE MORE ELEVATED THAN USUAL. PALLIATVE CARE SUGGESTS INCREASING HIS ANXIETY MEDS TO RECEIVE MORE OFTEN T/O THE DAY. TASHA WILL DISCUSS W/ RESIDENT & PLACE ORDERS.
[2023-02-22 03:00] VITALS: BP 103/69
--- NOTE | 2023-02-22 03:16 | NUR ---
PATIENT REPEATEDLY REMOVING PULSE OXIMETER SOON STAFF LEAVES ROOM. PATIENT EDUCATED ON THE NECESSITY FOR IT AND RISKS IF NOT WORN. PATIENT STATES "CHART THAT I'M REFUSING IT".
[2023-02-22 05:01] LABS: Hematocrit 28.9 % (37.0-53.0); Hemoglobin 8.7 g/dL (13.5-17.5)
--- NOTE | 2023-02-22 06:56 | NUR ---
PATIENT AOX4 AND FOLLOWS COMMANDS. AGITATED AND UNTRUSTING OF STAFF. UNWILLING TO TAKE PRN ATARAX SAYING "YOU ALL ARE TRYING TO CONTROL MY MIND WITH DRUGS". REFUSING TO WEAR PULSE OXIMETER. ESCALATING VERBAL AGGRESSION WITH STAFF. 2L NC FOR PATIENT COMFORT. SATS >92 ON ROOM AIR. NO BM OR N/V OVERNIGHT.
--- NOTE | 2023-02-22 07:26 | NUR ---
ASSUMED CARE: PT RESTING QUIETLY IN RECLINER AT THIS TIME. 2L NC ON FOR COMFORT. AFIB IN LOW 100S ON TELE. AT BEDSIDE AT THIS TIME. NO ACUTE NEEDS OR CONCERNS.
--- NOTE | 2023-02-22 07:39 | NUR ---
PT'S AT BEDSIDE AND PT IS ASKING IF HE CAN GO HOME. CALL TO DR ZENG WHO STATES SHE WILL BE DOWN IN 30 MINUTES. PT AGREEABLE TO THIS. NO FURTHER NEEDS AT THIS TIME.
[2023-02-22] MEDS ORDERED: CLOP75 PO (09:02)
--- NOTE | 2023-02-22 09:07 | NUR ---
ONCE PT HEARD HE WAS BEING DISCHARGED, HE WAS INSISTENT THAT HIS IV'S BE TAKEN OUT, GOT INTO WHEELCHAIR THAT GOT TO ROOM AND TOOK OFF BLOOD PRESSURE CUFF AND TELE MONITOR BEFORE VITALS COULD BE COMPLETED. SAT IN WHEELCHAIR AND ASKED IF HE COULD WAIT IN CAR. TOLD TO LEAVE PHONE NUMBER AND WOULD CALL WITH DISCHARGE INSTRUCTIONS. LEFT MESSAGE WITH TO CALL BACK WHEN ORDERS WERE COMPLETED. HAVE NOT HEARD BACK FROM OF YET
--- NOTE | 2023-02-22 09:47 | NUR ---
PT'S CALLED BACK AND WAS GIVEN INSTRUCTIONS OVER PHONE TO STOP PRILOSEC AND START PROTONIX AND PLAVIX. ALSO TOLD TO STOP XARELTO AND ASPIRIN AND TO FOLLOW UP WITH UNIVERSITY PROFESSOR REGARDING THOSE MEDS. AWARE TO FOLLOW UP WITH PCP TO GET H/H CHECKED. NEW MEDS CALLED TO [facility]. NO FURTHER NEEDS AT THIS TIME.
--- NOTE | 2023-02-22 13:28 | NUR ---
Review of pt in rounds. pt to discharge. He is high risk for readmission. Pt would benefit from hospice care. Will attemtp to contact.
--- NOTE | 2023-02-22 17:34 | NUR ---
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 will follow up.
[2023-02-28 09:11] LABS: TRICYCLIC ANTIDEP Negative ng/mL (Cutoff=100)
== END 2023-02-22 08:41 | disposition home or self-care (01) | DRG 811 ==
LOC: ER 12:37 → ICUW 16:57
PROVIDERS: Internal Medicine; Physician Assistant; Student in an Organized Health Care Education/Training Program; ADMIT Hospitalist
PROC: 30233N1 Transfusion of Nonautologous Red Blood Cells into Peripheral Vein, Percutaneous Approach (ICD-10-PCS; principal; 2023-02-20)
DX: D62 Acute posthemorrhagic anemia (principal); K25.4 Chronic or unspecified gastric ulcer with hemorrhage; I48.20 Chronic atrial fibrillation, unspecified; L97.429 Non-pressure chronic ulcer of left heel and midfoot with unspecified severity; J81.1 Chronic pulmonary edema; I95.9 Hypotension, unspecified; L97.529 Non-pressure chronic ulcer of other part of left foot with unspecified severity; E11.621 Type 2 diabetes mellitus with foot ulcer; E11.51 Type 2 diabetes mellitus with diabetic peripheral angiopathy without gangrene; I10 Essential (primary) hypertension; I25.10 Atherosclerotic heart disease of native coronary artery without angina pectoris; R19.5 Other fecal abnormalities; K59.00 Constipation, unspecified; F41.9 Anxiety disorder, unspecified; E66.9 Obesity, unspecified; R07.89 Other chest pain; I25.2 Old myocardial infarction; Z90.49 Acquired absence of other specified parts of digestive tract; Z95.5 Presence of coronary angioplasty implant and graft; Z79.51 Long term (current) use of inhaled steroids; Z79.4 Long term (current) use of insulin; Z79.2 Long term (current) use of antibiotics; Z87.891 Personal history of nicotine dependence; Z88.6 Allergy status to analgesic agent; Z91.030 Bee allergy status; Z91.09 Other allergy status, other than to drugs and biological substances; Z79.82 Long term (current) use of aspirin; Z79.899 Other long term (current) drug therapy; Z79.02 Long term (current) use of antithrombotics/antiplatelets; Z68.29 Body mass index [BMI] 29.0-29.9, adult
CPT/HCPCS: 36415; 36430; 71045; 80053; 82272; 82947; 83880; 84484; 85014; 85018; 85025; 85610; 86677; 86850; 86900; 86901; 86923; 93005; 93010; 94762; 96374; 99285-25; A9270; C9113; G0480; G0481; J1815; J7030; J7050; P9016

== ENCOUNTER 2023-02-26 11:23 | Inpatient (IN) | payer OTHER ==
[~2023-02-26] VITALS: Ht 188 cm; Wt 96.7 kg
[~2023-02-26 11:23] MED LIST changes: +CLOP75 PO
[2023-02-26 12:28] LABS: BASOPHILS ABSOLUTE AUTO 0.11 K/mm3 (0.00-0.23); BASOPHILS PERCENT AUTO 1 % (0-2); EOSINOPHILS ABSOLUTE AUTO 0.23 K/mm3 (0.00-0.68); EOSINOPHILS PERCENT AUTO 2 % (0-6); Hematocrit 29.4 % (37.0-53.0); IMMATURE GRAN ABSOLUTE AUTO 0.19 K/mm3 (0.00-0.10); IMMATURE GRAN PERCENT AUTO 1 % (0-1); LYMPHOCYTES ABSOLUTE AUTO 1.39 K/mm3 (0.84-5.20); LYMPHOCYTES PERCENT AUTO 10 % (21-46); MONOCYTES ABSOLUTE AUTO 1.42 K/mm3 (0.16-1.47); MONOCYTES PERCENT AUTO 10 % (4-13); Mean Corpuscular HGB 23.8 pg (26.0-34.0); Mean Corpuscular HGB Conc 30.6 g/dL (31.5-36.5); Mean Corpuscular Volume 78 fL (80-100); Mean Platelet Volume 8.7 fL (9.1-12.4); NEUTROPHILS ABSOLUTE AUTO 10.93 K/mm3 (1.96-9.15); NEUTROPHILS PERCENT AUTO 77 % (41-73); Platelet Count 353 K/mm3 (150-400); RDW Coefficient Variation 19.9 % (11.7-14.2); Red Blood Cell Count 3.78 M/mm3 (4.30-5.90); White Blood Cell Count 14.27 K/mm3 (4.00-11.30)
[2023-02-26 12:39] LABS: Albumin, Blood 2.7 g/dL (3.4-5.0); Albumin/Globulin Ratio 0.6 (0.8-1.8); Bilirubin, Total 0.5 mg/dL (0.1-1.0); Bun/Creatinine Ratio 29.7 (12.0-20.0); Calcium, Blood 9.2 mg/dL (8.5-10.1); Creatinine, Blood 1.01 mg/dL (0.60-1.20); Globulin, Blood 4.4 g/dL (2.2-4.0); Potassium, Blood 4.5 mmol/L (3.5-5.5); Total Protein, Blood 7.1 g/dL (6.4-8.2)
[2023-02-26] MEDS ORDERED: CIPR500 PO (13:54)
[2023-02-26] MEDS ORDERED: PANTOPRAZOLE SO40 M2 PO (15:07)
[2023-02-26 16:27] LABS: International Normalized Ratio 1.24; Prothrombin Time Results 12.9 Sec (9.7-11.5)
[2023-02-26 16:39] VITALS: BP 100/82
[2023-02-26] MEDS ORDERED: CARV6.25 PO (17:36)
[2023-02-26] MEDS ORDERED: METF500 PO (17:36)
[2023-02-26] MEDS ORDERED: COLCHICINE0.6 MG PO (17:36)
[2023-02-26] MEDS ORDERED: PROMETHAZINE12.5 MG PO (17:38)
[2023-02-26 19:47] VITALS: BP 97/71
[2023-02-27 03:00] VITALS: BP 86/52
--- NOTE | 2023-02-27 05:07 | NUR ---
SHIFT SUMMERY. PTS FOOD TRAY FOR EVENING MEAL WAS DROPPED AND REORDRED. BUT NO TRAY EVER CAME. PT GIVEN A SANDWITCH BUT PT NOT WANTNG A SANDWITCH. PT STATED HIS SON WAS GOING TO BRING HIM SOME THING. SON NEVER CAME. LATTER PTS CAME AMN WENT TO DRIVE THROUGH TO GET PT SOME THIG TO EAT, PT TOLD HEJUST WANTED SOMETHING WARM TO EAT. PT WAS VERY SAD AND UPSET ABOUT SON NOT COMMING. PT ANXIOUS AND WORRIED ABOUT FOOT AND WHAT WILL BE DONE. PT MEDICATED FOR PAIN X3. PT GIVEN ATIVAN ALSO PT SEEMING TO HVE A PANIC ATTACK. PT DOSING OF BUT AWAKING WITH IN A FEW MIN PT NOT GETTING ANY REAL SLEEP. EARLYER IN NIGHT A SECOND IV STATED IN PTS RIGHT LOWER ARM AND IV ANTIBIOTICS INFUSED. PT CONTINUES TO HAVE HEPARIN GTT INFUSING. PT HAVING SOME LOW BPS 86/52, DR BYNUMWOD ON THE FLOOR TO CHECK ANOTHER PT AND SPOKE TO HIM ABOUT PTS BP. STATED HE WOULD LOOK AT PT CHART AND SEE IF IVF BOLUS NEEDED. NO NEW ORDERS. CALL LIGHT IN REACH.
[2023-02-27 05:08] LABS: BASOPHILS ABSOLUTE AUTO 0.09 K/mm3 (0.00-0.23); BASOPHILS PERCENT AUTO 1 % (0-2); EOSINOPHILS PERCENT AUTO 2 % (0-6); Hematocrit 29.1 % (37.0-53.0); IMMATURE GRAN ABSOLUTE AUTO 0.16 K/mm3 (0.00-0.10); IMMATURE GRAN PERCENT AUTO 1 % (0-1); LYMPHOCYTES ABSOLUTE AUTO 1.68 K/mm3 (0.84-5.20); LYMPHOCYTES PERCENT AUTO 15 % (21-46); MONOCYTES ABSOLUTE AUTO 1.28 K/mm3 (0.16-1.47); MONOCYTES PERCENT AUTO 11 % (4-13); Mean Corpuscular HGB 24.1 pg (26.0-34.0); Mean Corpuscular HGB Conc 30.9 g/dL (31.5-36.5); Mean Corpuscular Volume 78 fL (80-100); NEUTROPHILS ABSOLUTE AUTO 7.96 K/mm3 (1.96-9.15); NEUTROPHILS PERCENT AUTO 70 % (41-73); Platelet Count 333 K/mm3 (150-400); RDW Coefficient Variation 20.2 % (11.7-14.2); RDW Standard Deviation 56.5 fL (35.1-46.3); Red Blood Cell Count 3.74 M/mm3 (4.30-5.90); White Blood Cell Count 11.37 K/mm3 (4.00-11.30)
[2023-02-27 05:32] LABS: Albumin, Blood 2.5 g/dL (3.4-5.0); Albumin/Globulin Ratio 0.6 (0.8-1.8); Bilirubin, Total 0.6 mg/dL (0.1-1.0); Bun/Creatinine Ratio 29.9 (12.0-20.0); Calcium, Blood 8.7 mg/dL (8.5-10.1); Creatinine, Blood 1.07 mg/dL (0.60-1.20); Globulin, Blood 4.4 g/dL (2.2-4.0); Potassium, Blood 4.4 mmol/L (3.5-5.5); Total Protein, Blood 6.9 g/dL (6.4-8.2)
[2023-02-27 07:31] VITALS: BP 100/35
[2023-02-27 07:32] VITALS: BP 100/35
--- NOTE | 2023-02-27 11:28 | NUR ---
DR. DALEY FROM PODIATRY CAME TO BEDSIDE TO EXAMINE PATIENT PER CONSULT. PT BECAME IRATE, TOLD PROVIDER TO GET OUT OF HIS ROOM AND NOT TO TALK TO HIM ABOUT "ANYTHING RELATED TO MY LEG OR CUTTING THINGS OFF. TALK TO MY ." PATIENT PROCEEDED TO ASK TECHNICAL SERVICES REPRESENTATIVE FOR ATIVAN, WHICH WAS RELATED TO THIS AUTHOR. DR. DALEY ASKED THIS AUTHOR TO HAVE PT'S CALL HIM TO DISCUSS POTENTIAL AMPUTATION. CALLED PATIENT ADVOCATE, LEFT , PER PATIENT REQUEST.
--- NOTE | 2023-02-27 13:24 | NUR ---
NOTIFIED BY ROUGHER HELPER THAT PT WAS OFF TELEMETRY. WENT TO CHECK ON PATIENT, FOUND ALL BUT RL LEADS OFF, PT SITTING ON EDGE OF BED. ASKED WHAT WAS GOING ON, HE STATED THAT HE WAS LEAVING AMA AND HIS WAS GOING TO TAKE HIM TO [facility] FOR A SECOND OPINION. NOTIFIED TELEMETRY TO PLACE MONITOR ON STAND BY. PT'S RETURNED SEVERAL MINUTES LATER. ASKED HER WHAT THE PLAN WAS; SHE STATED THAT SHE CALLED DR. EL TITUS'S P.A., TO COME SEE PATIENT AND THEY WOULD DECIDE AFTER THAT. WILL CONTINUE TO MONITOR.
[2023-02-27 15:56] VITALS: BP 91/60
--- NOTE | 2023-02-27 17:41 | NUR ---
PATIENT LEFT AMA, OFF UNIT VIA W/C AT 1735. RISKS AND BENEFITS WERE EXPLAINED TO HIS (PT CANNOT EMOTIONALLY COPE WITH HEALTHCARE DISCUSSIONS D/T PTSD FROM CHILDHOOD), WHO VERBALIZED UNDERSTANDING. ALL QUESTIONS WERE ANSWERED. NO BELONGINGS LEFT BEHIND IN ROOM.
--- NOTE | 2023-02-27 17:50 | NUR ---
pt getting ready to discharge. Spoke with pt about care. He is ok with continued updates to the [facility] [facility]. Will follow up with his case worker
== END 2023-02-27 18:09 | disposition left against medical advice (07) | DRG 300 ==
LOC: ER 11:23 → MEDS 15:10
PROVIDERS: Family Medicine; Physician Assistant; ADMIT Internal Medicine
DX: E11.52 Type 2 diabetes mellitus with diabetic peripheral angiopathy with gangrene (principal); I13.0 Hypertensive heart and chronic kidney disease with heart failure and stage 1 through stage 4 chronic kidney disease, or unspecified chronic kidney disease; I96 Gangrene, not elsewhere classified; I50.32 Chronic diastolic (congestive) heart failure; I48.20 Chronic atrial fibrillation, unspecified; L97.429 Non-pressure chronic ulcer of left heel and midfoot with unspecified severity; E11.22 Type 2 diabetes mellitus with diabetic chronic kidney disease; N18.30 Chronic kidney disease, stage 3 unspecified; L03.032 Cellulitis of left toe; I25.10 Atherosclerotic heart disease of native coronary artery without angina pectoris; F43.10 Post-traumatic stress disorder, unspecified; F41.9 Anxiety disorder, unspecified; I27.20 Pulmonary hypertension, unspecified; K21.9 Gastro-esophageal reflux disease without esophagitis; M10.9 Gout, unspecified; E11.40 Type 2 diabetes mellitus with diabetic neuropathy, unspecified; E66.9 Obesity, unspecified; I87.2 Venous insufficiency (chronic) (peripheral); E11.621 Type 2 diabetes mellitus with foot ulcer; I70.90 Unspecified atherosclerosis; D63.1 Anemia in chronic kidney disease; Z79.4 Long term (current) use of insulin; Z79.84 Long term (current) use of oral hypoglycemic drugs; Z53.29 Procedure and treatment not carried out because of patient's decision for other reasons; Z95.5 Presence of coronary angioplasty implant and graft; Z98.890 Other specified postprocedural states; I25.2 Old myocardial infarction; Z79.01 Long term (current) use of anticoagulants; Z87.19 Personal history of other diseases of the digestive system; Z91.038 Other insect allergy status; Z91.018 Allergy to other foods; Z88.8 Allergy status to other drugs, medicaments and biological substances; Z91.09 Other allergy status, other than to drugs and biological substances; Z79.02 Long term (current) use of antithrombotics/antiplatelets; Z79.891 Long term (current) use of opiate analgesic; Z79.899 Other long term (current) drug therapy; Z90.49 Acquired absence of other specified parts of digestive tract; Z98.62 Peripheral vascular angioplasty status; Z87.891 Personal history of nicotine dependence; Z79.51 Long term (current) use of inhaled steroids; Z79.2 Long term (current) use of antibiotics; Z68.27 Body mass index [BMI] 27.0-27.9, adult; Z88.1 Allergy status to other antibiotic agents
CPT/HCPCS: 36415; 73620; 80053; 82947; 84484; 85025; 85520; 85610; 86850; 86900; 86901; 93005; 93010; 93926; 96361; 96374; 96375; 99285-25; A9270; J1170; J1644; J1815; J1956; J7030

== ENCOUNTER 2023-02-28 02:16 | Day surgery (SDC) | payer OTHER ==
[~2023-02-28 02:16] MED LIST changes: +CIPR500 PO; +PANTOPRAZOLE SO40 M2 PO; +PROMETHAZINE12.5 MG PO
== END 2023-02-28 22:48 | disposition home or self-care (01) ==
LOC: WOUND 02:16
DX: E11.621 Type 2 diabetes mellitus with foot ulcer (principal); L97.422 Non-pressure chronic ulcer of left heel and midfoot with fat layer exposed; E11.51 Type 2 diabetes mellitus with diabetic peripheral angiopathy without gangrene; S91.105D Unspecified open wound of left lesser toe(s) without damage to nail, subsequent encounter; S91.104D Unspecified open wound of right lesser toe(s) without damage to nail, subsequent encounter; E11.21 Type 2 diabetes mellitus with diabetic nephropathy; I87.2 Venous insufficiency (chronic) (peripheral); I70.209 Unspecified atherosclerosis of native arteries of extremities, unspecified extremity; I75.022 Atheroembolism of left lower extremity
CPT/HCPCS: G0463

== ENCOUNTER 2023-03-04 16:47 | Inpatient (IN) | payer OTHER ==
[~2023-03-04] VITALS: Ht 185.4 cm; Wt 95.9 kg
[2023-03-04 17:12] LABS: BASOPHILS ABSOLUTE AUTO 0.11 K/mm3 (0.00-0.23); BASOPHILS PERCENT AUTO 1 % (0-2); EOSINOPHILS ABSOLUTE AUTO 0.05 K/mm3 (0.00-0.68); EOSINOPHILS PERCENT AUTO 0 % (0-6); Hematocrit 27.7 % (37.0-53.0); Hemoglobin 8.7 g/dL (13.5-17.5); IMMATURE GRAN ABSOLUTE AUTO 0.23 K/mm3 (0.00-0.10); IMMATURE GRAN PERCENT AUTO 1 % (0-1); LYMPHOCYTES ABSOLUTE AUTO 1.51 K/mm3 (0.84-5.20); LYMPHOCYTES PERCENT AUTO 8 % (21-46); MONOCYTES ABSOLUTE AUTO 2.33 K/mm3 (0.16-1.47); MONOCYTES PERCENT AUTO 13 % (4-13); Mean Corpuscular HGB 23.6 pg (26.0-34.0); Mean Corpuscular HGB Conc 31.4 g/dL (31.5-36.5); Mean Corpuscular Volume 75 fL (80-100); Mean Platelet Volume 9.1 fL (9.1-12.4); NEUTROPHILS ABSOLUTE AUTO 14.25 K/mm3 (1.96-9.15); NEUTROPHILS PERCENT AUTO 77 % (41-73); Platelet Count 411 K/mm3 (150-400); RDW Coefficient Variation 19.9 % (11.7-14.2); RDW Standard Deviation 54.3 fL (35.1-46.3); Red Blood Cell Count 3.68 M/mm3 (4.30-5.90); White Blood Cell Count 18.48 K/mm3 (4.00-11.30)
[2023-03-04 17:36] LABS: Albumin, Blood 2.6 g/dL (3.4-5.0); Albumin/Globulin Ratio 0.5 (0.8-1.8); Bilirubin, Total 0.6 mg/dL (0.1-1.0); Bun/Creatinine Ratio 26.6 (12.0-20.0); Calcium, Blood 8.8 mg/dL (8.5-10.1); Creatinine, Blood 1.92 mg/dL (0.60-1.20); Globulin, Blood 4.8 g/dL (2.2-4.0); Potassium, Blood 5.3 mmol/L (3.5-5.5); Total Protein, Blood 7.4 g/dL (6.4-8.2)
[2023-03-04 20:05] LABS: Source, Urine Clean Catch
[2023-03-04 20:07] LABS: Appearance, Urine Clear (Clear); Bilirubin, Urine Neg (Neg); Blood, Urine Neg (Neg); Glucose Qualitative, Urine 4+ (Neg); Ketones, Urine Neg (Neg); Leukocyte Esterase, Urine Neg (Neg); Nitrite, Urine Neg (Neg); Protein, Urine 1+ (Neg); Urobilinogen, Urine NORM (Normal)
[2023-03-04 20:14] LABS: Color, Urine Pale Yellow (P-Yellow)
[2023-03-04 21:45] VITALS: BP 98/65
[2023-03-04 22:00] VITALS: BP 104/47
[2023-03-04 22:00] LABS: Hematocrit 26.8 % (37.0-53.0); Hemoglobin 8.3 g/dL (13.5-17.5)
[2023-03-04 22:15] VITALS: BP 106/59
[2023-03-04 22:30] VITALS: BP 101/84
[2023-03-04 23:30] VITALS: BP 105/38
[2023-03-05] VITALS (79 sets, daily range): BP systolic 62–135; BP diastolic 32–109
[2023-03-05 00:51] LABS: pH Blood Venous 7.32 (7.34-7.37)
[2023-03-05 00:52] LABS: Base Excess Venous -2.4 mmol/L; Bicarbonate Venous 22.4 mmol/L (24.0-30.0)
--- NOTE | 2023-03-05 01:48 | NUR ---
NEW PT ADMIT TO ICU 14: PT ARRIVED TO THE UNIT VIA GURNEY @ 2130; PT TRANSFERRED OVER TO NEW BED VIA SLID SHEET. PT IS AWAKE AND A&O X 4 UPON ARRIVAL. PT STATES THAT HE IS ANXIOUS BEING ADMITTED TO THE HOSPITAL AT THIS TIME. WHEN ARRIVAL LEVO GTT @ 10 MCG, INFUSING THROUGH RIJ CENTRAL LINE; SBP WHEN ARRIVED WAS IN THE 70'S, MAP 57. LEVO GTT TITRATED UP TO 16 AT THIS TIME TO MAINTAIN MAP 65<. AFIB ON THE MONITOR WITH HR 70-80'S. LUNG SOUNDS ARE CLEAR IN UPPER LOBES AND DIM IN THE LOWER LOBES; SPO2 96<. PT OBSERVED TO HAVE UNDIAGNOSED SLEEP APNEA AND NASAL CANNULA PLACED IN MOUTH TO MAINTAIN SPO2. PT STATES HE IS HAVING SOME SOB; RT AWARE AND AT BEDSIDE TO ASSESS. BOWEL SOUNDS PRESENT IN ALL QUADRANTS; PT USING BEDPAN FOR ELIMINATION NEEDS; PT USING URINAL FOR VOIDING NEEDS. PT HAS PPP X 4; SKIN IS DIAPHORETIC AND WARM TO TOUCH. PT HAS DIABETIC ULCERS TO LEFT FOOT HEEL/TOES (SEE PICTURES). PT BUI INDEPENDENTLY AND ABLE TO SHIFT HIPS INDEPENDENTLY; PT , ESTEVAN, AT BEDSIDE TO HELP WITH REPOSITIONING NEEDED. WHEN PT ARRIVED TO FLOOR RIJ WAS INSPECTED AND TEGADERM WAS IN PLACE AND SUTURES NOTED UNDER DRESSING. AROUND 2300, PT'S NOTIFED THIS RN THAT PT WAS COMPLAINING THAT RIJ WAS LEAKING. WHEN INSPECTED IT WAS OBSERVED THAT RIJ CENTRAL LINE WAS PULLED OUT WITH 10-14 CM CATHETER LENGTH EXPOSED. PRESSURE APPLIED TO SITE IMMEDIATELY AND PT PLACED IN TRENDELENBERG. RIJ LINE PROMPTLY REMOVED AND CALL PLACED TO [facility] FOR ANOTHER LINE PLACEMENT. LIJ CENTRAL LINE PLACED BY PRATIMA AT 0000 AND PLACEMENT CONFIRMED WITH CXR. CURRENTLY VASO INFUSING AND LEVO GTT @ 14 MCG. BED LOWERED, CALL LIGHT IN REACH, PT'S AT BEDSIDE FOR THE NIGHT, WILL CONTINUE TO MONITOR.
[2023-03-05 03:51] LABS: BASOPHILS PERCENT AUTO 1 % (0-2); EOSINOPHILS ABSOLUTE AUTO 0.04 K/mm3 (0.00-0.68); EOSINOPHILS PERCENT AUTO 0 % (0-6); Hematocrit 26.7 % (37.0-53.0); Hemoglobin 8.1 g/dL (13.5-17.5); IMMATURE GRAN ABSOLUTE AUTO 0.24 K/mm3 (0.00-0.10); IMMATURE GRAN PERCENT AUTO 2 % (0-1); LYMPHOCYTES ABSOLUTE AUTO 1.62 K/mm3 (0.84-5.20); LYMPHOCYTES PERCENT AUTO 10 % (21-46); MONOCYTES ABSOLUTE AUTO 2.18 K/mm3 (0.16-1.47); MONOCYTES PERCENT AUTO 13 % (4-13); Mean Corpuscular HGB 23.1 pg (26.0-34.0); Mean Corpuscular HGB Conc 30.3 g/dL (31.5-36.5); Mean Corpuscular Volume 76 fL (80-100); Mean Platelet Volume 9.2 fL (9.1-12.4); NEUTROPHILS ABSOLUTE AUTO 12.36 K/mm3 (1.96-9.15); NEUTROPHILS PERCENT AUTO 75 % (41-73); Platelet Count 434 K/mm3 (150-400); RDW Coefficient Variation 20.1 % (11.7-14.2); RDW Standard Deviation 55.6 fL (35.1-46.3); White Blood Cell Count 16.54 K/mm3 (4.00-11.30)
[2023-03-05 04:11] LABS: Magnesium, Blood 2.8 mg/dL (1.6-2.4)
[2023-03-05 04:12] LABS: Albumin, Blood 2.3 g/dL (3.4-5.0); Albumin/Globulin Ratio 0.5 (0.8-1.8); Bilirubin, Total 0.7 mg/dL (0.1-1.0); Bun/Creatinine Ratio 29.6 (12.0-20.0); Calcium, Blood 8.3 mg/dL (8.5-10.1); Creatinine, Blood 1.59 mg/dL (0.60-1.20); Globulin, Blood 4.5 g/dL (2.2-4.0); Potassium, Blood 4.5 mmol/L (3.5-5.5); Total Protein, Blood 6.8 g/dL (6.4-8.2)
--- NOTE | 2023-03-05 06:41 | NUR ---
SHIFT SUMMARY: PT REMAINS ON LEVO GTT @ 14 MCG AND VASO GTT AT 0.04 MCG. SBP 100'S, AFIB ON MONITOR WITH HR 70-80. PT HAS NO C/O CHEST PAIN OR SOB, BUT STATES HE IS ANXIOUS. PT REMAINS ON NC @ 4LPM WITH SPO2 96<. PT KEEPS TAKING OFF EAR PROBE SO SPOT CHECKING NEEDED; WHEN PT IS SLEEPING SLEEP APNEA OBSERVED. PT HAD TWO BOWEL MOVEMENTS THIS SHIFT AND ABOUT 2300 ML URINE OUTPUT. REMAINS AT BEDSIDE AND HAS BEEN HELPING WITH PT'S ADL'S; PT PREFERS HIS 'S HELP WITH VOIDING/ELIMINATION. BED LOWERED, CALL LIGHT IN REACH, WILL CONTINUE TO MONITOR UNTIL ONCOMING RN ARRIVES.
--- NOTE | 2023-03-05 08:28 | NUR ---
CARE OF PT ASSUMED AT 0700. PT VERY DROWSY, SITTING AT EDGE OF BED, WATCHING MOVIE, DRIFTS OFF TO SLEEP OFTEN AND DURING QUESTIONING. PT REFUSES TO PUT FEET UP IN BED. PT'S IS AT BEDSIDE IN CHAIR SLEEPING. DISCUSSION HELD WITH PT REGARDING LOW BP AND SAFETY, IF BP CONT TO FALL PT WOULD CONSIDER LAYING DOWN IF SOMETHING WAS GIVEN FOR ANXIETY. PT STATES HE FEES "TERRIBLE", C/O THROAT PAIN 06/22. LEVOPHED INITIALLY AT 14MCG, DECREASED TO 12MCG. VASOPRESSIN GTT INFUSING AT 0.04UNITS. NS AT 125CC/HR. DR SAL CALLED FOR CONSULT, WILL BE IN TO SEE PT THIS AM. DR NOGUERA NOTIFIED WELL; WILL NOTIFY DR NOGUERA IF CARE ESCALATES BEYOND PODIATRY.
--- NOTE | 2023-03-05 08:58 | NUR ---
DR ANDUJAR AT BEDSIDE, ECHO ORDERED
--- NOTE | 2023-03-05 10:35 | NUR ---
DR SAL IN TO SEE PT. DR SAL RECOMMENDED REVASCULARIZATION BY IR PRIOR TO AMPUTATION OF TOES, DR SAL DOES NOT RECOMMEND BKA AT THIS TIME. DR RAVI NOTIFIED/UPDATED. CONSULT PLACED FOR DR SHAFFER.
--- NOTE | 2023-03-05 11:06 | NUR ---
PT COUGHING ON A SIP OF BROTH, YELLING AT HIS . "YOU KNOW I HAVE THROAT PROBLEMS, YOU KNOW BETTER THAN THAT, DON'T PULL THAT SHIT AGAIN.". ATTEMPTED TO CALM PT, PT THEN ASKED ME TO LEAVE THE ROOM. PT CALM AT THIS TIME. LEVOPHED INCREASED TO 14MCG, MAP NOW OVER 65. DR SHAFFER NOTIFIED OF CONSULT AND ASKED THAT OFFICE BE NOTIFIED, FAX SENT TO OFFICE.
--- NOTE | 2023-03-05 12:04 | NUR ---
ECHO COMPLETED. ATIVAN 1MG PO GIVEN FOR SEVERE ANXIETY. LEVOPHED AT 14MCG. PALLIATIVE CARE SPOKE W FAMILY.
--- NOTE | 2023-03-05 12:31 | NUR ---
DR RAVI AT BEDSIDE. PT CONTINUOUSLY REMOVES O2 (PT OX3). PT EDUCATED ON IMPORTANCE OF 02 AND KEEPING SATS >90%. ON RA PT DROPS TO MID 80'S FREQUENTLY BUT THEN QUICKLY AGAIN RISES TO LOW 90'S. LEVOPHED AT 16MCG TO KEEP MAP >65.
--- NOTE | 2023-03-05 13:25 | NUR ---
pt getting cardiac echo. pt very pale and ashen. he is on pressors and more fatigued. is at bedside and very anxious. Daughter is present we stepped out and had a careful discussion about prognosis. Pt gave permission. Pt daughter states they have called the family to come see him and they are very worried. Reviewed with daughter our past conversations and his pronosis. Advised that if he declines any further we may need to transition to hopsice care. Review of pt with intesivist and his grim prognosis.
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
[2023-03-06] VITALS (98 sets, daily range): BP systolic 77–137; BP diastolic 25–113
--- NOTE | 2023-03-06 05:30 | NUR ---
PT AOX1-2. EXTREMELY AGITATED OVERNIGHT, REQUIRING PRECEDEX. PATIENT VERBALLY AGGRESSIVE WITH STAFF. REPEATEDLY REMOVING OXYGEN, LEADS, AND PULSE OX. OFTEN UNWILLING TO WEAR OXYMIZER. VASOPRESSIN AND LEVOPHED INFUSING, REQUIRING INCREASED AMOUNT OF LEVOPHED TO MAINTAIN MAP >65. O2 REQUIRMENTS INCREASEDM TO 6L OXYMIZER. AT BEDSIDE WITH PATIENT.
[2023-03-06 07:45] LABS: BASOPHILS ABSOLUTE AUTO 0.12 K/mm3 (0.00-0.23); BASOPHILS PERCENT AUTO 1 % (0-2); EOSINOPHILS ABSOLUTE AUTO 0.07 K/mm3 (0.00-0.68); EOSINOPHILS PERCENT AUTO 0 % (0-6); Hematocrit 26.6 % (37.0-53.0); Hemoglobin 8.2 g/dL (13.5-17.5); IMMATURE GRAN ABSOLUTE AUTO 0.24 K/mm3 (0.00-0.10); IMMATURE GRAN PERCENT AUTO 2 % (0-1); LYMPHOCYTES ABSOLUTE AUTO 1.43 K/mm3 (0.84-5.20); LYMPHOCYTES PERCENT AUTO 9 % (21-46); MONOCYTES ABSOLUTE AUTO 1.81 K/mm3 (0.16-1.47); MONOCYTES PERCENT AUTO 12 % (4-13); Mean Corpuscular HGB 23.4 pg (26.0-34.0); Mean Corpuscular HGB Conc 30.8 g/dL (31.5-36.5); Mean Corpuscular Volume 76 fL (80-100); Mean Platelet Volume 8.9 fL (9.1-12.4); NEUTROPHILS PERCENT AUTO 77 % (41-73); Platelet Count 407 K/mm3 (150-400); RDW Coefficient Variation 19.9 % (11.7-14.2); RDW Standard Deviation 54.4 fL (35.1-46.3); White Blood Cell Count 15.67 K/mm3 (4.00-11.30)
--- NOTE | 2023-03-06 07:46 | NUR ---
ASSUMED CARE CARE OF THE PATIENT WAS ASSUMED AT 0700. PATIENT WAS RESTING IN BED WITH HIS AT BEDSIDE. BLOOD DRAWN FOR STAT LAB ORDERS. PRECEDEX AT 0.7, NOREPI AT 20, VASOPRESSIN AT 0.04, IV MAINTENANCE FLUID AT 10.
[2023-03-06 08:02] LABS: International Normalized Ratio 1.51; Prothrombin Time Results 15.5 Sec (9.7-11.5)
[2023-03-06 08:15] LABS: Albumin, Blood 2.3 g/dL (3.4-5.0); Albumin/Globulin Ratio 0.5 (0.8-1.8); Bilirubin, Total 0.8 mg/dL (0.1-1.0); Bun/Creatinine Ratio 27.9 (12.0-20.0); Calcium, Blood 8.6 mg/dL (8.5-10.1); Creatinine, Blood 1.22 mg/dL (0.60-1.20); Globulin, Blood 4.5 g/dL (2.2-4.0); Potassium, Blood 4.3 mmol/L (3.5-5.5); Total Protein, Blood 6.8 g/dL (6.4-8.2)
--- NOTE | 2023-03-06 09:11 | NUR ---
ATTEMPTED TO WAKE PT UP AND GIVE HIM HIS PO MEDICATIONS. PT WOULD NOT WAKE UP ENOUGH TO TAKE A SIP OF MILK. MEDICATIONS HELD DUE TO NOT BEING ABLE TO SAFELY WAKE UP AND SWALLOW. PT'S IS AT BEDSIDE. PT'S NURSE DARRON REDMOND, TITRATED NOREPI TO 18. PT IS HAVING OCCASIONAL BEATS OF BIGEMINY.
[2023-03-06 09:12] LABS: Bicarbonate Venous 20.8 mmol/L (24.0-30.0); PCO2 Venous 45.9 mmHg (38-42); pH Blood Venous 7.31 (7.34-7.37)
--- NOTE | 2023-03-06 10:14 | NUR ---
CANALES CATHETER INSERTED BY THIS STUDENT NURSE AT 1000 WITH SUPERVISION BY DARRON REDMOND. DR. WARD GAVE VERBAL ORDER TO INSERT CATHETER FOR STRICT I&OS D/T PLAN TO DIURES PATIENT.
[2023-03-06 11:06] LABS: Source, Urine Foley catheter
[2023-03-06 11:27] LABS: Appearance, Urine Clear (Clear); Bilirubin, Urine Neg (Neg); Blood, Urine 3+ (Neg); Color, Urine Yellow (P-Yellow); Glucose Qualitative, Urine 4+ (Neg); Ketones, Urine Neg (Neg); Leukocyte Esterase, Urine Neg (Neg); Nitrite, Urine Neg (Neg); Protein, Urine 3+ (Neg); Specific Gravity, Urine 1.015 (1.003-1.022); Urobilinogen, Urine NORM (Normal)
[2023-03-06 11:33] LABS: White Blood Cells, Urine 0-2 /hpf (0-5)
[2023-03-06 11:34] LABS: Mucus Mod (0-Heavy); Squamous Epithelial Cells Few /hpf (Few)
[2023-03-06 11:35] LABS: Bacteria Mod /hpf
--- NOTE | 2023-03-06 12:31 | NUR ---
SUMMARY OF EVENTS SINCE CATHETER PLACEMENT DR. WARD ORDERED PT TO RECIEVE BUMEX, ALBUMIN @ 100 MLS/HR, DIGOXIN 50 MLS/HR, HEPARIN INFUSION PER PHARMACY CONSULT, AND A BLOOD TRANSFUSION OF [address] ANDUJAR D/C ANTIBIOTICS D/T FEELING PT WAS IN CARDIOGENIC SHOCK VS. SEPTIC SHOCK. AROUND 1000 IT WAS NOTICED THAT PT BEGAN TO HAVE CIRCUMORAL CYANOSIS WHICH HAS NOW BEGAN TO RESOLVE. PT'S TEMPERATURE BEGAN TRENDING UP, WITH HIS MOST RECENT TEMP BEING 100.2 TEMPORAL. THE PT'S SKIN IS COOL AND HE IS DIAPHORETIC. THE PT IS CURRENTLY RECIEVING HIS BLOOD TRANSFUSION WHICH HE IS TOLERATING WELL. THE PT WILL WAKE UP WHEN WE REPOSITION HIM BUT WILL QUICKLY FALL BACK ASLEEP. THE PT CONTIUES TO HAVE INCONSISTENT RUNS OF BIGEMINY BEATS. AT 1250 THE PATIENT'S NOREPI IS AT 18, PRECEDEX AT 0.4, AND VASOPRESSIN AT 0.04.
--- NOTE | 2023-03-06 13:07 | NUR ---
IN AGAIN, WOULD LIKE TO TRANSFER PATIENT TO [facility] FOR TREATMENT OF THE VALVE. PT'S IN AGREEMENT AND WANTING TO DO THE TRANSFER.
--- NOTE | 2023-03-06 13:23 | NUR ---
THIS RN HAS BEEN WORKING SIDE BY SIDE WITH STUDENT NURSE, ASSISTING IN CARE OF THIS PATIENT, AWARE AND OKAYS CARE. THE PATIENT HAS PROGRESSIVELY GOTTEN WORSE OVER THE COURSE OF THE MORNING. THE BP IS NOW STARTING TO COME UP WITH THE BLOOD TRANSFUSION. TITRATED THE PRECEDEX OFF PER DIRECTION OF BOTH DR. ANDUJAR AND DR. WARD. PT CONTINUES ON NOREPI @ 16MCG, VASO @ 0.04U, HEPARIN @ 15U/KG, PT WITH CIRCUMORAL CYANOSIS IMPROVING SINCE EARLIER, MENTATION IS DECREASING DAY ADVANCES.
--- NOTE | 2023-03-06 13:50 | NUR ---
[facility] NOTIFIED THAT THEY WILL NOT BE READY TO RECIEVE THIS PT UNTIL TOMORROW (03/07). FAMILY NOTIFIED BY DARRON REDMOND. PT IS CURRENTLY SLEEPING, PRECEDEX IS TURNED OFF AT THIS TIME.
--- NOTE | 2023-03-06 15:14 | NUR ---
JF IS MORE ALERT, PRECEDEX IS ON STANDBY. FAMILY AT BEDSIDE. TITRATING DOWN THE NOREPINEPHRINE FOR MAP >65. HE IS ABLE TO COMMUNICATE HIS NEEDS AND IS CONVERSING WITH FAMILY REGARDING HIS CURRENT HEALTH STATUS. HE IS MADE AWARE OF THE GRAVITY OF HIS ILLNESS. DIGOXIN INFUSING, VASO CONTINUES.
--- NOTE | 2023-03-06 18:46 | NUR ---
SHIFT SUMMARY THE PATIENT'S MENTAL STATUS HAS IMPROVED THROUGHOUT THE DAY. HE BEGAN THE DAY DROWSY AND WOULD ONLY AWAKE WITH BIG POSITION CHANGES OR A MODERATE STERNAL RUB. THE PATIENT IS NOW CURRENTLY CARRYING ON CONVERSATIONS WITH HIS FAMILY AND RESPONDING WHEN SPOKEN TO. THE PATIENT'S PRECEDEX IS NOT CURRENTLY RUNNING AT THIS TIME. THE PATIENT IS IN AFIB WITH A RATE SUSTAINING BETWEEN 85 AND 95 BPM. THE PATIENT IS CONTINUING TO HAVE BIGEMINY BEATS. CURRENTLY VASOPRESSIN @ 0.04 AND NOREPI @14. THE PATIENT HAS BEEN COOPERATIVE WITH CARE SINCE BECOMING MORE ALERT. THE PATIENT'S CANALES THAT WAS INSERTED TODAY IS PATENT AND DRAINING YELLOW, CLEAR URINE TO GRAVITY. THE PATIENT'S FAMILY HAS BEEN AT BEDSIDE ALL DAY. THE PLAN FOR THE PATIENT IS TO BE TRANSFERED AT 0700 TOMORROW MORNING TO [facility]. THE PATIENT AND THE FAMILY ARE AWARE OF THE PLAN AND AGREE TO IT. WILL CONTINUE TO MONITOR UNTIL TRANSITION OF CARE TO NOC SHIFT.
[2023-03-07] VITALS (37 sets, daily range): BP systolic 71–145; BP diastolic 27–104
[2023-03-07 03:42] LABS: BASOPHILS ABSOLUTE AUTO 0.11 K/mm3 (0.00-0.23); BASOPHILS PERCENT AUTO 1 % (0-2); EOSINOPHILS ABSOLUTE AUTO 0.15 K/mm3 (0.00-0.68); EOSINOPHILS PERCENT AUTO 1 % (0-6); Hematocrit 28.7 % (37.0-53.0); IMMATURE GRAN ABSOLUTE AUTO 0.22 K/mm3 (0.00-0.10); IMMATURE GRAN PERCENT AUTO 1 % (0-1); LYMPHOCYTES ABSOLUTE AUTO 2.12 K/mm3 (0.84-5.20); LYMPHOCYTES PERCENT AUTO 14 % (21-46); MONOCYTES ABSOLUTE AUTO 1.99 K/mm3 (0.16-1.47); MONOCYTES PERCENT AUTO 13 % (4-13); Mean Corpuscular HGB 23.6 pg (26.0-34.0); Mean Corpuscular HGB Conc 31.4 g/dL (31.5-36.5); Mean Corpuscular Volume 75 fL (80-100); NEUTROPHILS ABSOLUTE AUTO 10.68 K/mm3 (1.96-9.15); NEUTROPHILS PERCENT AUTO 70 % (41-73); Platelet Count 354 K/mm3 (150-400); RDW Coefficient Variation 19.7 % (11.7-14.2); RDW Standard Deviation 53.8 fL (35.1-46.3); Red Blood Cell Count 3.82 M/mm3 (4.30-5.90); White Blood Cell Count 15.27 K/mm3 (4.00-11.30)
[2023-03-07 04:03] LABS: Albumin, Blood 2.9 g/dL (3.4-5.0); Albumin/Globulin Ratio 0.6 (0.8-1.8); Bilirubin, Total 1.6 mg/dL (0.1-1.0); Bun/Creatinine Ratio 27.5 (12.0-20.0); Calcium, Blood 8.9 mg/dL (8.5-10.1); Creatinine, Blood 1.38 mg/dL (0.60-1.20); Globulin, Blood 4.7 g/dL (2.2-4.0); Magnesium, Blood 1.8 mg/dL (1.6-2.4); Potassium, Blood 3.3 mmol/L (3.5-5.5); Total Protein, Blood 7.6 g/dL (6.4-8.2)
--- NOTE | 2023-03-07 06:52 | NUR ---
PATIENT AOX2 OVERNIGHT. FOLLOWS COMMANDS. PATIENT DID NOT REQUIRE PRECEDEX OVERNIGHT. PRN FENTANYL GIVEN X4 FOR HEEL PAIN. AFIB WITH FREQUENT PVC'S. LEVO AND VASO GTT TO MAINTAIN MAP >65. 2L NC. PATIENT AT BEDSIDE AND AWARE OF PLANS TO TRANSFER PATIENT TO [facility].
--- NOTE | 2023-03-07 09:10 | NUR ---
INITIAL ASSESSMENT/ TRANSFER TO [facility] PATIENT LYING IN BED UPON ENTERING ROOM. PATIENT PALE IN COLOR. PATIENT FLAT AND IRRITABLE. , EST[place], AT BEDSIDE. PATIENT ALERT AND ORIENTED TO HOSPITAL, SELF AND . PATIENT FORGETFUL AT TIMES. PATIENT AFEBRILE. PATIENT COMPLAINS OF PAIN IN LEGS. PATIENT ON 2 L NC. PATIENT IN A. FIB. HR AND BP STABLE. PATIENT HAD BOWL OF OATMEAL FOR BREAKFAST. CANALES IN PLACE; PATENT AND DRAINING. BLOOD SUGAR 317 THIS AM; COVERAGE ADMINISTERED. LEVOPHED AT 18 MCG/ MINUTE, VASOPRESSIN AT 0.04 UNITS/ MINUTE, AND HEPARIN AT 15 UNITS/ KG/ HOUR; ALL INFUSING INTO L IJ. PATIENT GIVEN AM MEDS. REPORT GIVEN TO TORIBIO AT [facility]. REPORT GIVEN TO FLIGHT CREW. STATED SHE UNDERSTOOD RISK OF TRANSPORT AND FLYING AND THAT SHE AGREED TO HAVE PATIENT TRANSFERRED TO ANOTHER HOSPITAL FOR INCREASED CARE NEEDS. PATIENT TAKEN BY FLIGHT CREW TO BE FLOWN OUT BY HELICOPTER. HAS TAKEN ALL PATIENT BELONGINGS WITH HER. PATIENT DISCHARGE COMPLETE.
== END 2023-03-07 09:15 | disposition short-term general hospital (02) | DRG 291 ==
LOC: ER 16:47 → ICUW 19:56
PROVIDERS: Emergency Medicine; Internal Medicine; Internal Medicine Cardiovascular Disease; Nurse Practitioner Acute Care; ADMIT Internal Medicine
PROC: B543ZZA Ultrasonography of Right Jugular Veins, Guidance (ICD-10-PCS; 2023-03-04)
PROC: 05HM33Z Insertion of Infusion Device into Right Internal Jugular Vein, Percutaneous Approach (ICD-10-PCS; principal; 2023-03-05)
PROC: 3E043XZ Introduction of Vasopressor into Central Vein, Percutaneous Approach (ICD-10-PCS; 2023-03-05)
DX: I13.0 Hypertensive heart and chronic kidney disease with heart failure and stage 1 through stage 4 chronic kidney disease, or unspecified chronic kidney disease (principal); I50.43 Acute on chronic combined systolic (congestive) and diastolic (congestive) heart failure; J96.01 Acute respiratory failure with hypoxia; R57.0 Cardiogenic shock; E87.1 Hypo-osmolality and hyponatremia; N17.9 Acute kidney failure, unspecified; I48.19 Other persistent atrial fibrillation; L97.429 Non-pressure chronic ulcer of left heel and midfoot with unspecified severity; I42.0 Dilated cardiomyopathy; I35.0 Nonrheumatic aortic (valve) stenosis; I27.20 Pulmonary hypertension, unspecified; E11.42 Type 2 diabetes mellitus with diabetic polyneuropathy; K76.1 Chronic passive congestion of liver; I73.89 Other specified peripheral vascular diseases; K21.9 Gastro-esophageal reflux disease without esophagitis; N18.30 Chronic kidney disease, stage 3 unspecified; E66.9 Obesity, unspecified; F41.9 Anxiety disorder, unspecified; F43.10 Post-traumatic stress disorder, unspecified; E78.5 Hyperlipidemia, unspecified; I99.8 Other disorder of circulatory system; I50.82 Biventricular heart failure; E11.22 Type 2 diabetes mellitus with diabetic chronic kidney disease; G47.30 Sleep apnea, unspecified; Z90.49 Acquired absence of other specified parts of digestive tract; D63.1 Anemia in chronic kidney disease; Z87.891 Personal history of nicotine dependence; Z79.899 Other long term (current) drug therapy; Z79.4 Long term (current) use of insulin; Z79.891 Long term (current) use of opiate analgesic; Z79.02 Long term (current) use of antithrombotics/antiplatelets; Z79.2 Long term (current) use of antibiotics; Z87.09 Personal history of other diseases of the respiratory system; Z88.8 Allergy status to other drugs, medicaments and biological substances; Z91.040 Latex allergy status; Z91.038 Other insect allergy status; Z88.3 Allergy status to other anti-infective agents; Z91.018 Allergy to other foods; Z99.81 Dependence on supplemental oxygen; Z95.5 Presence of coronary angioplasty implant and graft; Z98.890 Other specified postprocedural states; Z91.148 Patient's other noncompliance with medication regimen for other reason; Z79.01 Long term (current) use of anticoagulants
CPT/HCPCS: 36415; 36430; 36556; 51702; 71045; 73701; 80053; 81001; 82803; 82947; 83605; 83735; 83880; 84132; 84145; 84484; 85014; 85018; 85025; 85520; 85610; 85730; 86850; 86900; 86901; 86923; 87449; 93005; 93010; 93306; 94762; 96361-59; 96365-59; 96366-59; 96375-59; 99291-25; A9270; C1751; C9113; J0692; J1160; J1644; J1815; J2405; J3010; J3370; J7030; J7050; J7060; P9016; P9047; Q9967